=== PATIENT | male | born 1985 | race Caucasian/White ===

== ENCOUNTER 2017-02-27 17:25 | Emergency (ER) | payer MEDICAID ==
[2017-02-27 19:31] VITALS: BP 132/85
== END 2017-02-27 19:31 | disposition home or self-care (01) ==
LOC: ED 17:25
DX: S51.811A Laceration without foreign body of right forearm, initial encounter (principal); X58.XXXA Exposure to other specified factors, initial encounter; Y93.89 Activity, other specified; Y99.8 Other external cause status; Y92.89 Other specified places as the place of occurrence of the external cause
CPT/HCPCS: 90715; J2001; Q0092

== ENCOUNTER 2017-04-30 05:05 | Emergency (ER) | payer MEDICAID ==
[2017-04-30 05:57] VITALS: BP 144/92
== END 2017-04-30 05:57 | disposition home or self-care (01) ==
LOC: ED 05:05
DX: R21 Rash and other nonspecific skin eruption (principal); T78.40XA Allergy, unspecified, initial encounter; X58.XXXA Exposure to other specified factors, initial encounter
CPT/HCPCS: J7512; Q0163